=== PATIENT | female | born 1995 | race Caucasian/White ===

== ENCOUNTER → 2020-08-29 | Outpatient (CLI) | payer BC | LOC: COL.RAD 11:56 | DX: M51.37 Other intervertebral disc degeneration, lumbosacral region (principal); R29.898 Other symptoms and signs involving the musculoskeletal system; R33.9 Retention of urine, unspecified ==

== ENCOUNTER → 2020-08-30 | Outpatient (CLI) | payer BC | LOC: COL.RAD 09:37 | DX: R29.898 Other symptoms and signs involving the musculoskeletal system (principal); R33.9 Retention of urine, unspecified; R42 Dizziness and giddiness | CPT/HCPCS: A9585 ==